=== PATIENT | female | born 1955 | race Caucasian/White ===

== ENCOUNTER 2017-05-07 18:48 | Emergency (ER) | payer OTHER ==
[~2017-05-07 18:48] MED LIST: ULTR50TA PO
[2017-05-07 18:51] VITALS: BP 145/70; PULSE 92; RESP 16; TEMP 98.3; O2SAT 98
[2017-05-07] MEDS ORDERED: ALPR.5 PO (19:15)
[2017-05-07] MEDS ORDERED: PERC10TA27 PO (19:15)
[2017-05-07] MEDS ORDERED: PRIL20TA2 PO (19:15)
[2017-05-07] MEDS ORDERED: CYCL5TAB PO (19:15)
--- NOTE | 2017-05-07 19:15 | PD ---
HPI Chief Complaint: Musculoskeletal Complaint Time Seen by Provider: 19:05 Travel History International Travel<30 days: No Contact w/Intl Traveler<30days: No Traveled to known affect area: No History of Present Illness HPI 61-year-old female presents for evaluation after fall. She reports that on April 26 she was on an airplane and she twisted her right knee and fell, hitting her right rib cage against an armrest. She felt a "pop" in her right knee when she fell. She reports that she had some swelling in her right knee which has improved. Since then she has had persistent lateral right rib cage pain and right knee pain which prompted evaluation. Pain is aching, constant, worse with movement, relieved somewhat with her prescribed Lortab at home. Denies shortness of breath, cough or congestion, fevers or chills, abdominal pain. She has been ambulatory. No other complaints. PFSH Past Medical History Medical History: Denies Significant Hx ?: Not Social History Alcohol Use: Yes Tobacco Use: Yes Substance Use: No Allergies-Medications (Allergen,Severity, Reaction): Coded Allergies: codeine (Unverified Allergy, Severe, Nausea/Vomiting, 05/07/17) Reported Meds & Prescriptions Reported Meds & Active Scripts Active Lidocaine Patch 12 HR (Lidocaine) 5 % Patch 1 Patch TOPICAL DAILY PRN Remove patch after [address] (Diclofenac Sodium) 75 Mg Tabdr 75 Mg PO BID 10 Days Reported Xanax (Alprazolam) 0.5 Mg Tab 0.5 Mg PO Q4H PRN Prilosec (Omeprazole Magnesium) 20 Mg Tab 20 Mg PO DAILY Flexeril (Cyclobenzaprine HCl) 5 Mg Tab 5 Mg PO TID Percocet (Oxycodone-Acetaminophen) 10-325 mg Tab 1 Tab PO BID PRN Review of Systems Except as stated in HPI: all other systems reviewed are Neg Physical Exam Narrative GENERAL: Well-developed well-nourished female in no acute distress SKIN: Warm and dry. No open wounds, no bruising or soft tissue swelling HEAD: Atraumatic. Normocephalic. EYES: Pupils equal and round. No scleral icterus. No injection or drainage. ENT: No nasal bleeding or discharge. Mucous membranes pink and moist. NECK: Trachea midline. No JVD. CARDIOVASCULAR: Regular rate and rhythm. No murmur appreciated. RESPIRATORY: No accessory muscle use. Clear to auscultation. Breath sounds equal bilaterally. GASTROINTESTINAL: Abdomen soft, non-tender, nondistended. Hepatic and splenic margins not palpable. MUSCULOSKELETAL: No obvious deformities. Generalized mild tenderness to palpation of the right knee. There is pain with flexion and extension of the right knee. There is no obvious laxity on valgus/varus/anterior/posterior distress. There is some focal tenderness to palpation to the right anterior rib cage inferior to the breast. No bony crepitus. No tenderness to palpation along the spine. NEUROLOGICAL: Awake and alert. No obvious cranial nerve deficits. Motor grossly within normal limits. Normal speech. Data Data Last Documented VS Vital Signs Date Time Temp Pulse Resp B/P (MAP) Pulse Ox O2 Delivery O2 Flow Rate FiO2 05/07/17 18:51 98.3 92 16 145/70 (95) 98 Room Air Orders Orders Chest, Pa & Lat (05/07/17 ) Knee, Complete (4vws) (05/07/17 ) Resp Incentive Spirometry (05/07/17 ) Ed Discharge Order (05/07/17 20:05) MDM Medical Decision Making Medical Screen Exam Complete: Yes Emergency Medical Condition: Yes Medical Record Reviewed: Yes Differential Diagnosis Contusion, rib fracture, hemothorax, pneumothorax, ligamentous disruption, meniscal disruption, tibial plateau fracture, proximal fibular fracture, patellar fracture Narrative Course X-ray imaging of the chest reveals CONCLUSION: 1. No consolidation or effusion. Mild compression deformity mid thoracic spine. X-ray of the knee reveals mild osteoarthritis. The patient has no evidence of acute compression deformity. She was notified of the results of her x-rays. She'll be discharged with an incentive spirometer, prescriptions for diclofenac and Lidoderm patches. Recommended outpatient follow-up with primary care physician for outpatient MRI of the knee. Diagnosis Primary Impression: Chest wall contusion Additional Impression: Right knee sprain Additional Instructions: Medication as needed. Take diclofenac with meals. Follow up close with primary care physician and return for any emergent medical conditions. Med/Other Pt SpecificInfo: Prescription(s) given Scripts Lidocaine Patch 12 HR (Lidocaine Patch 12 HR) 5 % Patch 1 PATCH TOPICAL DAILY Y for PAIN, #1 BOX 1 Refill Remove patch after 12 hours Prov: Zainab Kelly DO 05/07/[address] (Diclofenac Sodium DR) 75 Mg Tabdr 75 MG PO BID for 10 Days, #20 TAB 0 Refills Prov: Zainab Kelly Eyal VELASQUEZ 05/07/17 Disposition: 01 DISCHARGE HOME Condition: Stable Maik Rebolledo May 07, 2017 19:15
--- NOTE | 2017-05-07 19:52 | RADRPT ---
EXAM DATE/TIME: 05/07/2017 19:25 [facility] COMPARISON: No previous studies available for comparison. INDICATIONS : Chest discomfort; fall 2 weeks ago. MEDICAL HISTORY : None. SURGICAL HISTORY : None. ENCOUNTER: Initial ACUITY: 2 weeks PAIN SCORE: 6/10 LOCATION: Right chest FINDINGS: PA and lateral views of the chest demonstrate the lungs to be symmetrically aerated without evidence of mass, infiltrate or effusion. There is some underlying emphysema seen mild compression deformity mid thoracic spine. The cardiomediastinal contours are unremarkable. CONCLUSION: 1. No consolidation or effusion. Mild compression deformity mid thoracic spine. Ham Coronado MD on May 07, 2017 at 19:48 Board Certified Radiologist. This report was verified electronically.
--- NOTE | 2017-05-07 19:55 | RADRPT ---
EXAM DATE/TIME: 05/07/2017 19:28 [facility] COMPARISON: No previous studies available for comparison. INDICATIONS : Right knee pain; fall 2 weeks ago. MEDICAL HISTORY : None. SURGICAL HISTORY : None. ENCOUNTER: Initial ACUITY: 2 weeks PAIN SCORE: 8/10 LOCATION: Right knee FINDINGS: Four view examination of the right knee demonstrates moderate osteoarthritis of the right knee especi ally medially. No significant joint effusion. CONCLUSION: 1. Moderate osteoarthritis. No acute bony abnormality. Ham Coronado MD on May 07, 2017 at 19:50 Board Certified Radiologist. This report was verified electronically.
[2017-05-07] MEDS ORDERED: LIDO1PAD52 TOPICAL (20:06)
[2017-05-07] MEDS ORDERED: DICL75TA PO (20:06)
== END 2017-05-07 20:25 | disposition home or self-care (01) ==
LOC: NEPD 18:48
DX: S20.211A Contusion of right front wall of thorax, initial encounter (principal); S83.91XA Sprain of unspecified site of right knee, initial encounter; W19.XXXA Unspecified fall, initial encounter; Y92.813 Airplane as the place of occurrence of the external cause
CPT/HCPCS: 71020; 73564; 94150; 99285